=== PATIENT | male | born 1955 | race Caucasian/White ===

== ENCOUNTER 2017-01-03 07:11 | Day surgery (SDC) | payer BC ==
[~2017-01-03] VITALS: Ht 182.9 cm; Wt 133.6 kg
[~2017-01-03 07:11] MED LIST: ACCUPRIL40 MG PO; AMLOPIDINE; BP MED; DIOVAN80 M1 PO; EXFORGE PO; NORCO 325 MG-51 TAB PO; PERCOCET 5/321 UDTAB PO; PRILOSEC40 MG PO; WELLBUTRIN SR150 M1 PO; ZYLOPRIM 100MG100 MG PO; [UNRECOGNIZED DRUG - OTHER]
[2017-01-03] MEDS ORDERED: AMBIEN 10MG10 MG PO (07:27)
[2017-01-03] MEDS ORDERED: ATIVAN 1MG T1 MG/TAB PO (07:27)
[2017-01-03] MEDS ORDERED: AMARYL4 MG PO (07:28)
[2017-01-03] MEDS ORDERED: LOFIBRA160 MG PO (07:29)
[2017-01-03] MEDS ORDERED: ZYLOPRIM 300MG300 MG PO (07:29)
[2017-01-03] MEDS ORDERED: WELLBUTRIN XL300 M1 PO (07:30)
[2017-01-03] MEDS ORDERED: EXFORGE 10 MG-31 TAB PO (07:30)
[2017-01-03] MEDS ORDERED: LASIX 20MG TABL20 MG PO (07:31)
[2017-01-03] MEDS ORDERED: PRILOSEC 20MG20 MG PO (07:32)
[2017-01-03] MEDS ORDERED: HYGROTON 2525 MG/TAB PO (07:32)
[2017-01-03 07:50] VITALS: BP 152/120; PULSE 87; TEMP 98
[2017-01-03 09:30] VITALS: BP 165/107; PULSE 81; TEMP 97.6
[2017-01-03 09:45] VITALS: BP 152/117; PULSE 79
[2017-01-03 10:00] VITALS: BP 150/107; PULSE 69
[2017-01-03 10:15] VITALS: BP 164/109; PULSE 72
== END 2017-01-03 10:25 | disposition home or self-care (01) ==
LOC: SDCO 07:11
DX: K21.9 Gastro-esophageal reflux disease without esophagitis (principal); K22.2 Esophageal obstruction
CPT/HCPCS: OP; C1726; J2250; J3010; J7030

== ENCOUNTER → 2017-01-04 | Outpatient (CLI) | payer BC ==
[~2017-01-04] MED LIST changes: +AMARYL4 MG PO; +AMBIEN 10MG10 MG PO; +ATIVAN 1MG T1 MG/TAB PO; +EXFORGE 10 MG-31 TAB PO; +HYGROTON 2525 MG/TAB PO; +LASIX 20MG TABL20 MG PO; +LOFIBRA160 MG PO; +PRILOSEC 20MG20 MG PO; +WELLBUTRIN XL300 M1 PO; +ZYLOPRIM 300MG300 MG PO
== END ==
LOC: COL.VAS 10:57
DX: I51.89 Other ill-defined heart diseases (principal); R07.2 Precordial pain

== ENCOUNTER 2018-03-13 12:35 | Day surgery (SDC) | payer BC ==
[~2018-03-13] VITALS: Ht 182.9 cm; Wt 129.6 kg
[2018-03-13] VITALS (8 sets, daily range): BP systolic 165–198; BP diastolic 102–129; PULSE 72–86; TEMP 97.4–97.8
[2018-03-13] MEDS ORDERED: CONTRAVE1 TER PO ×2 (13:34→13:35)
[2018-03-13] MEDS ORDERED: ALDACTONE50 MG PO (13:35)
[2018-03-13] MEDS ORDERED: AMARYL4 MG PO (13:37)
[2018-03-13] MEDS ORDERED: NORVASC 5MG5 MG/TAB PO (13:37)
[2018-03-13] MEDS ORDERED: COZAAR100 MG PO (13:38)
[2018-03-13] MEDS ORDERED: COREG 25MG25 MG/TAB PO (13:38)
[2018-03-13] MEDS ORDERED: GLUCOPHAGE1000 MG PO (13:39)
== END 2018-03-13 17:00 | disposition home or self-care (01) ==
LOC: SDCO 12:35
DX: D12.3 Benign neoplasm of transverse colon (principal); D12.4 Benign neoplasm of descending colon; D12.0 Benign neoplasm of cecum; D12.5 Benign neoplasm of sigmoid colon; K64.0 First degree hemorrhoids; E11.9 Type 2 diabetes mellitus without complications; I10 Essential (primary) hypertension; E78.00 Pure hypercholesterolemia, unspecified; M10.9 Gout, unspecified; G47.33 Obstructive sleep apnea (adult) (pediatric); Z86.73 Personal history of transient ischemic attack (TIA), and cerebral infarction without residual deficits; Z79.84 Long term (current) use of oral hypoglycemic drugs; Z88.5 Allergy status to narcotic agent
CPT/HCPCS: J2250; J3010; J7030

== ENCOUNTER 2018-12-27 19:03 | Emergency (ER) | payer BC ==
[~2018-12-27] VITALS: Ht 185.4 cm; Wt 134.1 kg
[~2018-12-27 19:03] MED LIST changes: +ALDACTONE50 MG PO; +CONTRAVE1 TER PO; +COREG 25MG25 MG/TAB PO; +COZAAR100 MG PO; +GLUCOPHAGE1000 MG PO; +NORVASC 5MG5 MG/TAB PO
[2018-12-27 19:11] VITALS: TEMP 97.8
[2018-12-27] MEDS ORDERED: NORCO 325 MG-51 TAB PO (21:21)
[2018-12-27 21:35] VITALS: BP 162/86; PULSE 68
[2018-12-27] MEDS ORDERED: CEPHALEXIN500 M1 PO (21:41)
== END 2018-12-27 21:46 | disposition home or self-care (01) ==
LOC: COL.ER 19:03
DX: S43.401A Unspecified sprain of right shoulder joint, initial encounter (principal); S50.311A Abrasion of right elbow, initial encounter; I10 Essential (primary) hypertension; K21.9 Gastro-esophageal reflux disease without esophagitis; E11.9 Type 2 diabetes mellitus without complications; Z23 Encounter for immunization; Z79.84 Long term (current) use of oral hypoglycemic drugs; W11.XXXA Fall on and from ladder, initial encounter; Y92.009 Unspecified place in unspecified non-institutional (private) residence as the place of occurrence of the external cause
CPT/HCPCS: J2405; J3010

== ENCOUNTER → 2020-04-02 | Outpatient (CLI) | payer BC ==
[~2020-04-02] MED LIST changes: +CEPHALEXIN500 M1 PO
== END ==
LOC: COL.RAD 13:11
DX: M54.2 Cervicalgia (principal)

== ENCOUNTER 2021-02-19 12:32 | Observation (INO) | payer BC ==
[~2021-02-19] VITALS: Ht 185.4 cm; Wt 110.0 kg
[2021-02-19 13:25] LABS: HEMATOCRIT 44.1 % (42.0-52.0); HEMOGLOBIN 14.9 g/dl (13.5-18.0); MEAN CELL VOLUME 87 fl (80.0-100.0); MEAN CORPUSCULAR HEMOGLOBIN 29 pg (27.0-31.0); MEAN CORPUSCULAR HGB CONC 34 g/dl (33.0-37.0); PLATELET COUNT 190 K/mm3 (130-400); RED BLOOD COUNT 5.08 M/mm3 (4.20-5.60); REDCELL DISTRIBUTION WIDTH-CV 12.7 % (11.5-14.5)
[2021-02-19 13:52] LABS: BAND 22 % (0-10); LYMPHOCYTE 16 % (20.0-51.0); NEUTROPHILS 57 % (42.0-75.2); NUCLEATED RED BLOOD CELL 1 (0-6); PLATELET ESTIMATE NORMAL (NORMAL)
[2021-02-19 13:56] LABS: ALBUMIN 3.2 gm/dL (3.4-4.8); BILIRUBIN,TOTAL 0.8 mg/dL (0.2-1.2); C-REACTIVE PROTEIN 4.63 mg/dL (0.00-0.50); CALCIUM 9.3 mg/dL (8.4-10.2); CREATININE, serum 1.49 mg/dL (0.72-1.25); TOTAL PROTEIN 7.1 gm/dL (6.2-8.1)
[2021-02-19 15:24] VITALS: BP 164/92; PULSE 88; TEMP 98.9
--- NOTE | 2021-02-19 15:49 | NUR ---
Pt. admitted to room 305. Pt. educated on coughing, deep breathing, and sitting up in the chair during his hospital stay. The pt. is on room air and O2 sat is WNL. BP and RR elevated at this time. Dr. Ndiaye called to notify about vital signs and inquire if pt. can get pain medication, cough medication, and nausea medication. New orders obtained from Dr. Ndiaye. Pt. also had a loose BM, Dr. Ndiaye notified. Pt. was able to ambulate to the bathroom with a standby assist, steady gait noted. Pt. educated electronics mechanic light use, call light and belongings in reach.
--- NOTE | 2021-02-19 16:13 | NUR ---
Dr. Villarreal from pulmonology and Dr. Candelario from infectious disease have been notified on the telephone regarding new consults.
[2021-02-19] MEDS ORDERED: LEXAPRO 10MG10 MG PO (18:09)
[2021-02-19] MEDS ORDERED: MOBIC15 MG (18:14)
[2021-02-19] MEDS ORDERED: TRULICITY1.5 MG/0.5 SQ (18:16)
--- NOTE | 2021-02-19 18:24 | NUR ---
Pt.'s called with pt.'s permission to accurately get med reconciliation completed. Pt.'s , Hailey, can be reached at [phone]. Pt.'s updated on pt.'s plan of care. Plan to call VILLA Blake to notify regarding the completed med rec.
--- NOTE | 2021-02-19 18:31 | NUR ---
VILLA Blake notified pt.'s med rec is up to date. VILLA Blake also notified about pt.'s baseline CKD stage II and how he was followed by Dr. Morrison from nephrology two years ago, per pt.'s Hailey. Pt. was requesting to take his ambien gama. VILLA Blake notified.
[2021-02-19 19:48] VITALS: BP 111/59; PULSE 105; TEMP 98.6
[2021-02-19 19:56] VITALS: BP 155/88; PULSE 84; TEMP 98.5
[2021-02-20] VITALS (8 sets, daily range): BP systolic 128–170; BP diastolic 73–95; PULSE 74–89; TEMP 97.4–98.7
--- NOTE | 2021-02-20 06:24 | NUR ---
PT ON RA SINCE ADMISSION, BGM [phone], [phone], [phone] SEE EMAR FOR SS GIVEN. PT HAD 1 LOOSE STOOL THIS SHIFT BUT MISSED COLLECTION HAT. CXR TAKEN THIS AM. HAS BEEN ABLE TO REST TONIGHT.
--- NOTE | 2021-02-20 07:03 | NUR ---
Patient awake and resting in bed. Labs getting drawn. Patient denies any pain, discomfort, or further needs at this time. Not currently requiring O2.
[2021-02-20 07:18] LABS: HEMATOCRIT 44.7 % (42.0-52.0); HEMOGLOBIN 14.8 g/dl (13.5-18.0); MEAN CELL VOLUME 89 fl (80.0-100.0); MEAN CORPUSCULAR HEMOGLOBIN 29 pg (27.0-31.0); MEAN CORPUSCULAR HGB CONC 33 g/dl (33.0-37.0); MEAN PLATELET VOLUME 10.9 fl (7.4-10.4); PLATELET COUNT 195 K/mm3 (130-400); RED BLOOD COUNT 5.04 M/mm3 (4.20-5.60); REDCELL DISTRIBUTION WIDTH-CV 12.6 % (11.5-14.5)
[2021-02-20 07:38] LABS: C-REACTIVE PROTEIN 4.8 mg/dL (0.00-0.50); CALCIUM 9.3 mg/dL (8.4-10.2); CREATININE, serum 1.07 mg/dL (0.72-1.25); POTASSIUM 3.9 mmol/L (3.5-4.5)
[2021-02-20 08:44] LABS: BAND 33 % (0-10); LYMPHOCYTE 25 % (20.0-51.0); NEUTROPHILS 38 % (42.0-75.2); PLATELET ESTIMATE NORMAL (NORMAL)
--- NOTE | 2021-02-20 09:25 | NUR ---
Scheduled medications given. Shift assessment performed. Patient not requiring O2 at this time. Denies any N/V/D, patient is afebrile. BP elevated, BP medications given. Patient denies any pain, discomfort, or any further needs at this time. Call light in reach. Patient A&O.
--- NOTE | 2021-02-20 15:42 | NUR ---
Patient's , Hailey, contacted this RN with concerns regarding patient receiving Remdesivir and intubation being an option. She stated that patient verbalized to her before admission that he did not want to recieve Remdesivir or be intubated. She asked how these request can be added onto the patient's chart. was informed that patient would have to verbalize these choices to doctor. She requested that she be involved with conversation while doctor was in the room. Informed her that I would try and arrange. This RN talked with patient regarding his wishes. Handout and education about Remdesivir given to patient. All questions answered. Patient wishes to move forward with Remdesivir treatment. Intubation discussed with patient while Dr. Ndiaye was in the room. Patient voices that he does not wish to be intubated. Patient asked if he would like us to contact his , or if he would like to contact her about the decisions made. Patient stated that he would like to contact her. Stated, "She tends to get rude when things are not going her way." This RN recieved a call a short time later from Mrs. Sharpe. She was very upset that decisions had been made without her. She stated that she did not think patient was of sound mind to make his own decisions. She was worried that patient was on medications that would alter his state of mind. assured that this was not the case. This RN asked Mrs. Sharpe if she would like to speak with the doctor regarding decisions made, she stated that she would. Dr. Ndiaye contacted and information r/t situation relayed. Dr. Ndiaye to contact Mrs. Sharpe.
--- NOTE | 2021-02-20 18:48 | NUR ---
VILLA Blake notified of elevated glucose. 14 units given per protocol. Venous glucouse lab taken.
--- NOTE | 2021-02-20 19:07 | NUR ---
Lou Hess notified of critical lab result Glucose 485- see new orders.
[2021-02-21 00:56] VITALS: BP 133/77; PULSE 44; TEMP 98.5
[2021-02-21 04:33] VITALS: BP 152/89; PULSE 70; TEMP 97.5
[2021-02-21 06:50] LABS: HEMATOCRIT 40.9 % (42.0-52.0); MEAN CELL VOLUME 87 fl (80.0-100.0); MEAN CORPUSCULAR HEMOGLOBIN 30 pg (27.0-31.0); MEAN CORPUSCULAR HGB CONC 34 g/dl (33.0-37.0); MEAN PLATELET VOLUME 11.4 fl (7.4-10.4); PLATELET COUNT 200 K/mm3 (130-400); RED BLOOD COUNT 4.73 M/mm3 (4.20-5.60); REDCELL DISTRIBUTION WIDTH-CV 12.5 % (11.5-14.5)
--- NOTE | 2021-02-21 06:59 | NUR ---
Patient awake in bed watching television. Respirations even and unlabored. Denies any needs a this time. Call light in reach.
[2021-02-21 07:11] LABS: ALBUMIN 2.8 gm/dL (3.4-4.8); BILIRUBIN,TOTAL 0.4 mg/dL (0.2-1.2); C-REACTIVE PROTEIN 2.62 mg/dL (0.00-0.50); CREATININE, serum 0.93 mg/dL (0.72-1.25); POTASSIUM 3.5 mmol/L (3.5-4.5); TOTAL PROTEIN 6.3 gm/dL (6.2-8.1)
[2021-02-21 08:09] LABS: BAND 30 % (0-10); LYMPHOCYTE 13 % (20.0-51.0)
[2021-02-21 08:10] LABS: PLATELET ESTIMATE NORMAL (NORMAL)
[2021-02-21 08:11] LABS: NEUTROPHILS 51 % (42.0-75.2)
[2021-02-21 09:05] VITALS: BP 135/90; PULSE 83; TEMP 97.7
--- NOTE | 2021-02-21 10:58 | NUR ---
Scheduled medications given. Shift assessment performed. Patient currently on RA. Tessalon perles given for cough. Patient denies any pain or discomfort at this time. Discussed with patient changing DPOA to one of his children, patient would like to discuss with children before decisions are made. Social work consult offered. Patient denies need for it at this time. Patient asked if he still wanted information shared with his while he is here. Would like no information given to other than the possibility of him going home today. Patient does not wish to change privacy password at this time. Patient denies any further needs at this time. Call light in reach. VSS. Patient A&O.
[2021-02-21] MEDS ORDERED: TESSALON P100 MG/CAP PO (11:16)
[2021-02-21] MEDS ORDERED: OMNICEF 300MG300 MG PO (11:23)
[2021-02-21] MEDS ORDERED: DOXYCYCLINE 10100 MG PO (11:26)
[2021-02-21] MEDS ORDERED: DECADRON6 MG PO (11:27)
[2021-02-21 12:26] VITALS: BP 150/93; PULSE 80; TEMP 98.4
--- NOTE | 2021-02-21 14:59 | NUR ---
Patient meets Discharge criteria. IV DC'd, catheter intact, no signs of phlebitis. Discharge education/instructions given. All questions answered. Patient verbalized and understanding of the teaching. Patient denies any pain, discomfort, SOA, or further needs at this time. VSS. Patient A&O. Patient ambulated from building escorted by [facility]. Family transporting home.
== END 2021-02-21 15:27 | disposition home or self-care (01) ==
LOC: COL.ER 12:32 → MEDICAL 14:44
PROVIDERS: Internal Medicine Sleep Medicine; Nurse Practitioner; Physician Assistant; ADMIT Internal Medicine
DX: U07.1 COVID-19 (principal); J12.82 Pneumonia due to coronavirus disease 2019; J96.01 Acute respiratory failure with hypoxia; M79.10 Myalgia, unspecified site; R19.7 Diarrhea, unspecified; E11.9 Type 2 diabetes mellitus without complications; E11.22 Type 2 diabetes mellitus with diabetic chronic kidney disease; I12.9 Hypertensive chronic kidney disease with stage 1 through stage 4 chronic kidney disease, or unspecified chronic kidney disease; N18.9 Chronic kidney disease, unspecified; E78.5 Hyperlipidemia, unspecified; M10.9 Gout, unspecified; K21.9 Gastro-esophageal reflux disease without esophagitis; G47.33 Obstructive sleep apnea (adult) (pediatric); G47.00 Insomnia, unspecified; F41.9 Anxiety disorder, unspecified; F32.A Depression, unspecified; Z79.84 Long term (current) use of oral hypoglycemic drugs; Z79.899 Other long term (current) drug therapy
CPT/HCPCS: 99233-AI; 99239; G0378; J0696; J1100; J1644; J1815; J2405; J7030; J7050

== ENCOUNTER 2021-03-16 07:52 | Day surgery (SDC) | payer BC ==
[~2021-03-16] VITALS: Ht 185.4 cm; Wt 124.0 kg
[~2021-03-16 07:52] MED LIST changes: +DECADRON6 MG PO; +DOXYCYCLINE 10100 MG PO; +LEXAPRO 10MG10 MG PO; +MOBIC15 MG; +OMNICEF 300MG300 MG PO; +TESSALON P100 MG/CAP PO; +TRULICITY1.5 MG/0.5 SQ
[2021-03-16 08:52] VITALS: BP 181/124; PULSE 82; TEMP 97.7
[2021-03-16] MEDS ORDERED: ATIVAN 1MG T1 MG/TAB PO (09:00)
[2021-03-16] MEDS ORDERED: AMARYL4 MG PO (09:00)
[2021-03-16] MEDS ORDERED: MOBIC15 MG PO (09:01)
[2021-03-16] MEDS ORDERED: COZAAR100 MG PO (09:01)
[2021-03-16] MEDS ORDERED: PRILOSEC 20MG20 MG PO (09:02)
[2021-03-16] MEDS ORDERED: NORVASC 10MG10 MG PO (09:02)
[2021-03-16] MEDS ORDERED: AMBIEN 10MG10 MG PO (09:02)
[2021-03-16] MEDS ORDERED: ZYLOPRIM 300MG300 MG PO (09:04)
[2021-03-16] MEDS ORDERED: LEXAPRO 10MG10 MG PO (09:05)
[2021-03-16] MEDS ORDERED: COREG 25MG25 MG/TAB PO (09:05)
[2021-03-16] MEDS ORDERED: GLUCOPHAGE500 MG/TAB PO (09:06)
[2021-03-16 09:50] VITALS: BP 121/75; PULSE 84; TEMP 97
--- NOTE | 2021-03-16 09:50 | NUR ---
pt returned to bay 3 via cart from endo room, walked to chair, in room. call light in reach. no c/o, takes snack
[2021-03-16 10:05] VITALS: BP 135/77; PULSE 85
[2021-03-16 10:20] VITALS: BP 135/77; PULSE 86
--- NOTE | 2021-03-16 10:20 | NUR ---
Dr olivares talk with pt. IV d'cd intact. reviewed discharge inst. with pt on followup, activity level and precautions with verbal understanding.
[2021-03-16 10:35] VITALS: BP 163/92; PULSE 80
--- NOTE | 2021-03-16 10:45 | NUR ---
pt up in room dressed, discharged via w/c to car with
== END 2021-03-16 10:45 | disposition home or self-care (01) ==
LOC: SDCO 07:52
DX: Z12.11 Encounter for screening for malignant neoplasm of colon (principal); K57.30 Diverticulosis of large intestine without perforation or abscess without bleeding; K64.0 First degree hemorrhoids; I10 Essential (primary) hypertension; G47.33 Obstructive sleep apnea (adult) (pediatric); M10.9 Gout, unspecified; E78.00 Pure hypercholesterolemia, unspecified; E78.5 Hyperlipidemia, unspecified; E11.9 Type 2 diabetes mellitus without complications; F32.A Depression, unspecified; F41.9 Anxiety disorder, unspecified; Z86.010 Personal history of colon polyps; Z79.84 Long term (current) use of oral hypoglycemic drugs; Z79.899 Other long term (current) drug therapy; Z86.73 Personal history of transient ischemic attack (TIA), and cerebral infarction without residual deficits
CPT/HCPCS: J0360; J2704; J7030

== ENCOUNTER → 2023-12-28 | Outpatient (CLI) | payer BC ==
[~2023-12-28] MED LIST changes: +GLUCOPHAGE500 MG/TAB PO; +MOBIC15 MG PO; +NORVASC 10MG10 MG PO
== END ==
LOC: COL.RAD 14:17
DX: D17.1 Benign lipomatous neoplasm of skin and subcutaneous tissue of trunk (principal)